=== PATIENT | female | born 1990 | race Caucasian/White ===

== ENCOUNTER 2018-11-04 08:34 | Inpatient (IN) | payer MEDICAID ==
[~2018-11-04] VITALS: Ht 160 cm; Wt 96.7 kg
[~2018-11-04 08:34] MED LIST: NPH,100I5 SQ; PREN-93 PO
[2018-11-04 08:49] VITALS: BP 135/83; PULSE 71; RESP 18
[2018-11-04 08:50] VITALS: Ht 160 cm; Wt 96.7 kg
--- NOTE | 2018-11-04 11:07 | HP ---
Date/Time of Note Date/Time of Note DATE: 11/04/18 TIME: 11:05 OB - History Hx of Present Free Text/Dictation 28-year-old 2 para 1 at 33 weeks and 2 days of gestation with estimated date of delivery December 21, 2018 Patient presents with chief complaint of vaginal bleeding and passing blood clot since this morning She reports positive movement, denies leaking fluid, denies uterine contractions Patient is a gestational diabetic currently on insulin Prior obstetrical history significant for x1 for preeclampsia Care: Good Care Obstetrical Complications: Gestational Diabetes (GDM A2 on insulin) Past Family/Social History * Past Medical, Surgical, Family and Obstetric Histories reviewed from chart. OB Admission Exam Vital Signs Vital Signs Vital Signs Date Temp Pulse Resp B/P (MAP) Pulse Ox O2 O2 Flow FiO2 Time Delivery Rate 11/04/18 97.5 71 18 135/83 Room Air 08:49 (100) Physical Exam HEENT: WNL Heart: Rhythm Normal Lungs: Clear, Equal Abdomen: WNL Extremities: Normal Reflexes: Normal Cervical Dilatation: None Effacement: 0% Membranes: Intact Heart Rate: 140's Accelerations: Accelerations Present Decelerations: No Decelerations Varibility: Moderate Contractions on Admission: None Last 72 hourBlood Glucose Bedside Glucose - 72 Hours Test 11/04/18 08:48 Bedside Glucose 109 mg/dL (70-220) Last 72 hours Lab Results CBC & BMP 11/04/18 09:33 Liver Function Test 11/04/18 09:33 Alanine Aminotransferase (ALT/SGPT) 21 Albumin 3.8 Alkaline Phosphatase 105 Aspartate Amino Transf (AST/SGOT) 21 Direct Bilirubin 0.00 Total Protein 7.4 Urine Results - 72 Hrs Test 11/04/18 09:42 Urine Color YELLOW (YELLOW) Urine Clarity CLEAR (CLEAR) Urine pH 6.0 (5.0-9.0) Urine Specific [place] 1.014 (1.003-1.030) Urine Ketones NEGATIVE mg/dL (NEGATIVE) Urine Nitrite NEGATIVE mg/dL (NEGATIVE) Urine Bilirubin NEGATIVE mg/dL (NEGATIVE) Urine Urobilinogen NEGATIVE mg/dL (NEGATIVE) Urine Leukocyte Esterase NEGATIVE Mattie/ul Urine Microscopic RBC > 182 /HPF (0-5) H Urine Microscopic WBC 1 /HPF (0-5) Urine Hemoglobin 3+ mg/dL (NEGATIVE) H Urine Glucose NEGATIVE mg/dL (NEGATIVE) Urine Total Protein 1+ mg/dl (NEGATIVE) H PROCEDURE: US OB estimated weight CLINICAL INDICATION: labor TECHNIQUE: Multiple transabdominal sonographic images of the pelvis were obtained. . COMPARISON: None FINDINGS: Live intrauterine in cephalic presentation with heart rate of 158.8 beats per minute. Posterior placenta. Cervix appears closed with length of 5.4 cm. Measurements were made in order to determine age. The results are as fo llows: BPD = 8.1 cm, 32 weeks 3 days HC = 29.1 cm, 32 weeks 0 days AC = 30.6 cm, 34 weeks 4 days FL = 6.3 cm, 32 weeks 4 days AUA 32 weeks 6 days plus or minus 2 weeks 2 days, MAGALIE (AUA) 12/24/2018. EFW = 2218 g +/- 332.73 g (4 pounds 14 ounces +/- 12 ounces), EFW percentile 49.3%. IMPRESSION: 1. EFW = 2218 g +/- 332.73 g, EFW percentile 49.3%. RPTAT: EE Physician Cody Date Time Electronically viewed and signed by Physician Cody on 11/04/2018 10:49 RP/ CC: MILLY REID MD [id number] PROCEDURE: US OB biophysical profile. CLINICAL INDICATION: Vaginal bleeding. TECHNIQUE: Multiple sonographic images of the pelvis were obtained. The images were reviewed on a PACS workstation. COMPARISON: OB ultrasound November 04, 2018 per FINDINGS: Noted is a single intrauterine gestation in cephalic lie with positive heart beat. The placenta is posterior grade 1 to II. Amniotic fluid index m easures 17.7 cm. Biophysical profile: movement 2/2 tone 2/2. breathing 2/2 ADOLPH 2/2 Total 11/16 IMPRESSION: Normal biophysical profile . . .Alejandro Townsend MD, Date Time Electronically viewed and signed by .Alejandro Townsend MD, MD on 11/04/2018 12:55 .A/ CC: CATRACHITO PITTS MD [phone] OB Assessment/Plan Reason for admission: labor, vaginal bleeding (Rule out placental abruption) Plan: Expectant Management Other plan: Admit to antepartum PIH labs done 24-hour urine protein collection IV fluids Betamethasone for lung maturity Magnesium for neuro protection and prevention of labor Neonatology consultation Continuous observation and consider repeat if further vaginal bleeding/passing clots and increased level of pain/contractions or nonreassuring heart tracing This patient plan of care was discussed with Dr. Maya/perinatologist Copies To: CC: MILLY REID MD ; CATRACHITO PITTS MD Nov 04, 2018 11:07
--- NOTE | 2018-11-04 11:18 | TRIAGE ---
OB Triage Datetime Report Generated by CPN: 11/04/2018 11:18 Datetime: 11/04/2018 11:00 Stage of : OB Triage Maternal Assessment Level of Consciousness: Keenly Alert, Responsive Labor Evaluation Frequency: 0 Monitor Mode: External Resting Tone [place]: Relaxed Heart Rate FHR Baseline Rate: 140 Monitor Mode: External US Variability: Moderate 6-25 bpm Accelerations: 15X15 Decelerations: Variable Category: Category I Pain Assessment Pain Scale: 0 Pain Goal: 3 Vaginal Exam Membrane Status: Intact Vaginal Bleeding: Scant Datetime: 11/04/2018 10:00 Stage of : OB Triage Maternal Assessment Level of Consciousness: Keenly Alert, Responsive Labor Evaluation Frequency: 2UC/HR Monitor Mode: External Duration (sec)2399: 60 Quality: Mild Resting Tone [place]: Relaxed Heart Rate FHR Baseline Rate: 140 Monitor Mode: External US Variability: Moderate 6-25 bpm Accelerations: 15X15 Decelerations: Variable Category: Category I Pain Assessment Pain Scale: 0 Pain Goal: 3 Vaginal Exam Membrane Status: Intact Vaginal Bleeding: Scant Datetime: 11/04/2018 08:54 EGA: 33.2 Datetime: 11/04/2018 08:50 Bedside Blood Glucose: 109 Datetime: 11/04/2018 08:44 Assessment Type: Triage Maternal Assessment Level of Consciousness: Keenly Alert, Responsive DTR's/Clonus: DTRs 2+; No Clonus Headache: Denies Blurred Vision: No Respiratory Effort: Unlabored; Regular Rhythm; Equal Expansion Breath Sounds, Left: Clear and Equal Breath Sounds, Right: Clear and Equal Nausea/Vomiting: Denies RUQ Epigastric Pain: Denies Lower Extremities Edema: None Degree: None Upper Extremities Edema: None Degree: None Facial Edema: None Fall Risk Assessment History of Falling: (0) No Secondary Diagnosis: (0) No Ambulatory Aid: (0) Bedrest/Nurse Assist IV Therapy: (0) No Gait: (0) Normal/Bedrest/Immobile Mental Status: (0) Oriented to Own Ability Fall Score: 0 Fall Risk Score Definition: No Risk: No action required Datetime: 11/04/2018 08:42 Time of Arrival: 11/04/2018 08:28 Arrived By: Ambulatory; Wheelchair Arrived From: Home Chief Complaint: PT. HERE C/O VAG. BLEEDING SINCE THIS AM Movement: Present Contractions: Denies/Absent Rupture of Membranes: Denies Vaginal Bleeding: Scant Vaginal Discharge: Denies Recent Sexual Intercouse: Denies Abdominal Trauma: Not Applicable Patient Complaints: None Time Provider Notified: 11/04/2018 08:28 Provider Notified: ESHAGHIAN Initial Plan: BS/CBC/T_S/PREVIA/EFW/PIH/CVL Datetime: 11/04/2018 08:39 Monitor Mode: External Monitor Mode: External US
[2018-11-04] MEDS ORDERED: ACETAMINOPHEN 325 MG TAB PO PRN (11:30)
[2018-11-04] MEDS ORDERED: NACL 0.9% 3 ML SYG IV SCH (11:30)
[2018-11-04] MEDS ORDERED: BETAMET NA PHOS/AC(6 MG/ML) 2 ML INJ SYG IM SCH ×2 (12:00→21:00)
[2018-11-04] MEDS: INSULIN ASPART [NOVOLOG] 3 ML PEN SC SCH ×2 (12:30→17:35)
[2018-11-04] MEDS: LACTATED RINGER'S 1,000 ML IV SCH ×3 (12:55→22:02)
[2018-11-04] MEDS: PRENATAL VITAMIN PO SCH (13:00)
[2018-11-04] MEDS: ACCU-CHEK XX SCH ×4 (16:00→19:35)
[2018-11-04] MEDS ORDERED: AZITHROMYCIN 500MG/NS (PMX) 250 ML IV SCH (17:30)
[2018-11-04] MEDS ORDERED: OXYTOCIN 30 UNITS/LR 500 ML IV SCH (17:30)
[2018-11-04] MEDS ORDERED: CEFAZOLIN 2 GM/50 ML (PMX) 50 ML IVPB SCH (17:30)
[2018-11-04] MEDS ORDERED: MAGNESIUM SULFATE 4 GM/100 ML 100 ML ONE (17:34)
[2018-11-04] MEDS ORDERED: MAGNESIUM SULFATE 4 GM/100 ML 100 ML IV ONE (18:00)
[2018-11-04] MEDS: MAGNESIUM SULFATE 20 GM/500 ML 500 ML IV SCH (18:16)
[2018-11-04] MEDS: NPH, HUMAN INSULIN ISOPHANE 3ML VIAL SC SCH (21:00)
[2018-11-05] MEDS: MAGNESIUM SULFATE 20 GM/500 ML 500 ML IV SCH ×2 (04:56→15:39)
[2018-11-05] MEDS: ACCU-CHEK XX SCH ×8 (06:12→21:14)
[2018-11-05] MEDS ORDERED: NON-FORMULARY/PATIENT OWN MED (Prenatal Vit No.124/Iron/FA (Prenatal Vitamin Tablet) 1 EAC PO SCH (09:00)
[2018-11-05] MEDS: PRENATAL VITAMIN PO SCH (09:07)
[2018-11-05] MEDS: CEPHALEXIN 500 MG CAP PO SCH ×3 (09:07→21:15)
--- NOTE | 2018-11-05 10:07 | QN ---
Documentation Comment progress note patient seen and evaluated no complaints positive dysuria no vaginal bleeding/discharge vs stable afebrile ab soft mild lower abdominal tenderness extremity no edema no calf tenderness ve no active bleeding/discharge fhr cat 1 toco occasional ctx a/ iup at 33 wks 3 days ga, r/o placenta abruption. currently on mg and steriod treatment, gdma2 stable afebrile p/ consider delivery for non reassuring tracing repeat sono/ cbc perinatology f/u neonatology consult MILLY REID MD Nov 05, 2018 10:07
[2018-11-05] MEDS: LACTATED RINGER'S 1,000 ML IV SCH ×2 (12:27→20:55)
--- NOTE | 2018-11-05 16:18 | CONS ---
Consultation Date/Type/Reason Admit Date/Time Nov 04, 2018 at 10:57 Date of Consultation: Nov 05, 2018 Type of Consult Neonatology Reason for Consultation labor, Bleeding possible abruptio Gestational diabetes insulin deonedent (A2) Date/Time of Note DATE: 11/05/18 TIME: 16:12 Hx of Present Illness Admit Date/Time Oct 19, 2018 at 10:29 Date of Consultation: Nov 05, 2018 Type of Consult Neonatology Reason for Consultation Admitted for -induced hypertension, bleeding, gestational diabetes insulin-dependent, at 33-3/7-week. Requesting Provider: ALLY LOBO Date/Time of Note DATE: 11/05/18 TIME: 14:40 Hx of Present Illness Neonatlogy consultation on request Dr Canseco Patient admitted 11/04. HISTORY The mother is a 28 year old at 33 2/7 weeks gestation Denies illnesses, medications, smoking, drugs, alcohol. has been complicated by: Gestational Diabetes, on insulin (type A2) CURRENT ADMISSION HISTORY: She was admitted to [facility] on 11/04/18. Medications received betamethasone, magnesiumsulfate. Last Ultrasound on 11/04/18 showed EFW 2218 Gram. CONSULTATION: I introduced myself and explained the role of the instructional developer at the delivery and in the subsequent care of her . I discussed the common problems and possible complications of infants. in the approach 1. Survival and prognosis. I explained that survival at 33 weeks is well over >> 90%. Premature babies are at increased risk for neuromuscular and developmental problems compare to infants born at term. 2. Duration of hospitalization. In general, infants remain hospitalized in our intensive care nursery until due date or 2-3 weeks earlier as infant's condition allow. Discharge of the infant is entirely contingent upon resolution of issues related to prematurity. 3. Respiratory. Although courses of betamethasone attenuate the severity of RDS, the infant still remains at risk for needing respiratory support after delivery. The may require oxygen, positive pressure via nasal pressure support, or mechanical ventilation to support lung immaturity. If the does require mechanical ventilation, surfactant administration may be given down the endotracheal tube in order to maximize lung function. Possible need for invasive monitoring via umbilical and/or peripheral vessels. 4. Apnea of prematurity. A 's brain may be unable to consistently and reliably provide cues to breathe. As such, may have apnea (stop or forget to breathe) resulting in drops in their oxygen level. While most cases of apnea of prematurity can be attenuated with caffeine therapy, rarely infants may require intubation and mechanical ventilation if their episodes of apnea are severe. 5. Risk for infection. Possible infectious problems and/or complication and need for treatment with antibiotics, work-up including procedures such as spinal tap were discussed. 6. Vascular access Needs for purposes of monitoring, blood draws and intravenous nutrition: umbilical, peripheral arterial and central venous access were discussed. 7. Possible need for transfusion. We take small amounts of blood while taking care of her baby. Babies also break down their own red blood cells after and become more anemic until about 2 months of age. infants are at risk for jaundice and hyperbilirubinemia requiring phototherapy, and may need support with blood transfusions, using blood from Blood Bank or [place], All blood used is tested for all the standard tests, including AIDS, Hepatitis, and many others, and CMV negative and irradiated blood is used. This testing typically takes about 5 days. 8. Feeding support and feeding intolerance. After acute illness and intravenous feeding, at this gestational age, the infant may still not have a mature capability to feed orally from breast or bottle, as the ipsc-vgjibws-cxcqgoqyr coordination does not develop until about 34-35 weeks gestation.While on IV support, the infant will be gradually advanced on nasogastric/orogastric feedings, using maternal breast milk and supplements as per usual guideline, weaned off IV fluids, then ultimately transitioned to oral feedings. The exp ectation is to be discharged home (sometimes supplemented with bottle feeding in smaller infants) or bottlefeeding, whichever the mother prefers. There is also increased risk for necrotizing enterocolitis. 9. Jaundice. At this gestational age, the infant is more susceptible to jaundice and may require phototherapy at some point during the first couple weeks of admission. infants are at risk for jaundice and hyperbilirubinemia requiring phototherapy 10. Temperature instability. At this gestational age, the infant may lack adequate adipose tissue to maintain thermoregulation. As a result, the infant will remain in an Isolette typically until at least 1800 grams and 34-35 weeks gestation. 11. Neuro: Premature babies are at increased risk for neuromuscular and developmental problems compare to infants born at term. At risk for adverse neurodevelopmental outcome. At this gestational age, the 's brain is more susceptible to bleeding (IVH) and brain injury and as such, the is at risk for future developmental delays. Although a completely normal neurologic outcome is possible, infants are at relatively higher risk for attentio n-deficit, hyperactivity, anxiety and learning disabilities compared to their term peers. These developmental delays manifest with age and a normal-appearing at discharge does not necessarily assure normal future development. The infant will need close developmental follow-up with the claim clinician after discharge in order to identify disabilities early when they may be amenable to therapy. Eye exams and hearing screen will also be performed during admission and before discharge. Parents are present and significant and good questions and they will answered to their satisfaction. Translation was provided by 1 of our bilingual [place]- speaking nurses with good understanding for the patient's. Thank you for allowing me to participate in the care of your patient. Length of consultation 50 minutes, more than 50% of which was spent on counseling and coordination of care. Mita Armendariz MD Labor Relations Officer [employer] [facility] NICU at [facility] My Past Medical History Home Meds Reported Medications NPH, Human Insulin Isophane (Humulin N Kwikpen) 100 Unit/1 Ml Insuln.pen, 6 UNIT SQ QHS, EA 11/04/18 Vit No.124/Iron/FA ( Vitamin Tablet) 1 Each Tablet, 1 EACH PO DAILY, TAB 11/04/18 Medications Current Medications Insulin Human NPH (Humulin N) 6 unit HS SC ; Start 11/04/18 at 21:00 Acetaminophen (Tylenol Tab) 650 mg Q4H PRN PO .PAIN OR TEMP; Start 11/04/18 at 11:30 Diagnostic Test (Pha) (Accu-Chek) 1 ea FBSPP XX Last administered on 11/05/18at 06:12; Admin Dose 1 EA; Start 11/04/18 at 13:30 Lactated Ringer's 1,000 ml @ 125 mls/hr Q8H IV Last administered on 11/05/18at 12:27; Admin Dose 125 MLS/HR; Start 11/04/18 at 11:30 Insulin Aspart (Novolog Insulin Pen) WITH MEALS SC ; Start 11/04/18 at 12:30 Diagnostic Test (Pha) (Accu-Chek) 1 ea FBSPP XX Last administered on 11/05/18at 06:12; Admin Dose 1 EA; Start 11/04/18 at 13:30 Prenat Multivit/ [place]/Iron/Folic Ac () 1 tab DAILY PO Last administered on 11/05/18at 09:07; Admin Dose 1 TAB; Start 11/04/18 at 13:00 Cefazolin Sodium/ Dextrose 50 ml @ 100 mls/hr ONCE IVPB ; Start 11/04/18 at 17:30 Oxytocin/Lactated Ringer's 500 ml @ 125 mls/hr POST IV ; Start 11/04/18 at 17:30 Azithromycin 250 ml @ 250 mls/hr ONCE IV ; Start 11/04/18 at 17:30 Magnesium Sulfate 500 ml @ 50 mls/hr Q10H IV Last administered on 11/05/18at 15:39; Admin Dose 50 MLS/HR; Start 11/04/18 at 17:37 Cephalexin (Keflex) 500 mg TID PO Last administered on 11/05/18at 15:25; Admin Dose 500 MG; Start 11/05/18 at 09:00 Allergies: Coded Allergies: No Known Allergy (Unverified , 11/04/18) Social History Smoking Status: Never smoker Exam/Review of Systems Exam Vitals Vital Signs Date Temp Pulse Resp B/P (MAP) Pulse Ox O2 O2 Flow FiO2 Time Delivery Rate 11/04/18 97.5 71 18 135/83 Room Air 08:49 (100) Intake and Output 11/04/18 11/04/18 11/05/18 1515:00 23:00 07:00 IntakeIntake Total 1274.5 ml 1000 ml OutputOutput Total 500 ml 2300 ml BalanceBalance 774.5 ml -1300 ml Results Result Diagram: 11/05/18 1203 11/04/18 0933 Results 24hrs Laboratory Tests Test 11/05/18 00:41 11/05/18 04:58 11/05/18 05:49 11/05/18 09:11 Magnesium Level 4.1 H 4.1 H Bedside Glucose 126 117 Test 11/05/18 12:03 11/05/18 13:26 White Blood Count 13.8 #H Red Blood Count 3.91 L Hemoglobin 11.6 L Hematocrit 34.9 L Mean Corpuscular 89.3 Volume Mean Corpuscular 29.7 Hemoglobin Mean Corpuscular 33.2 Hemoglobin Concent Red Cell 12.2 Distribution Width Platelet Count 189 Mean Platelet Volume 11.2 H Immature 1.200 H Granulocytes % Neutrophils % 82.3 H Lymphocytes % 11.1 L Monocytes % 5.3 Eosinophils % 0.0 Basophils % 0.1 Nucleated Red Blood 0.0 Cells % Immature 0.160 H Granulocytes # Neutrophils # 11.4 H Lymphocytes # 1.5 Monocytes # 0.7 Eosinophils # 0.0 Basophils # 0.0 Nucleated Red Blood 0.0 Cells # Magnesium Level 4.2 H Bedside Glucose 108 Medications Medication Current Medications Insulin Human NPH (Humulin N) 6 unit HS SC ; Start 11/04/18 at 21:00 Acetaminophen (Tylenol Tab) 650 mg Q4H PRN PO .PAIN OR TEMP; Start 11/04/18 at 11:30 Diagnostic Test (Pha) (Accu-Chek) 1 ea FBSPP XX Last administered on 11/05/18at 06:12; Admin Dose 1 EA; Start 11/04/18 at 13:30 Lactated Ringer's 1,000 ml @ 125 mls/hr Q8H IV Last administered on 11/05/18at 12:27; Admin Dose 125 MLS/HR; Start 11/04/18 at 11:30 Insulin Aspart (Novolog Insulin Pen) WITH MEALS SC ; Start 11/04/18 at 12:30 Diagnostic Test (Pha) (Accu-Chek) 1 ea FBSPP XX Last administered on 11/05/18at 06:12; Admin Dose 1 EA; Start 11/04/18 at 13:30 Prenat Multivit/ [place]/Iron/Folic Ac () 1 tab DAILY PO Last administered on 11/05/18at 09:07; Admin Dose 1 TAB; Start 11/04/18 at 13:00 Cefazolin Sodium/ Dextrose 50 ml @ 100 mls/hr ONCE IVPB ; Start 11/04/18 at 17:30 Oxytocin/Lactated Ringer's 500 ml @ 125 mls/hr POST IV ; Start 11/04/18 at 17:30 Azithromycin 250 ml @ 250 mls/hr ONCE IV ; Start 11/04/18 at 17:30 Magnesium Sulfate 500 ml @ 50 mls/hr Q10H IV Last administered on 11/05/18at 15:39; Admin Dose 50 MLS/HR; Start 11/04/18 at 17:37 Cephalexin (Keflex) 500 mg TID PO Last administered on 11/05/18at 15:25; Admin Dose 500 MG; Start 11/05/18 at 09:00 MITA HOLLAND Nov 05, 2018 16:18
[2018-11-05] MEDS: INSULIN ASPART [NOVOLOG] 3 ML PEN SC SCH ×2 (19:50→19:51)
[2018-11-05] MEDS: NPH, HUMAN INSULIN ISOPHANE 3ML VIAL SC SCH (21:18)
[2018-11-06] MEDS: LACTATED RINGER'S 1,000 ML IV SCH ×2 (01:23→13:49)
[2018-11-06] MEDS: MAGNESIUM SULFATE 20 GM/500 ML 500 ML IV SCH (01:26)
[2018-11-06] MEDS: INSULIN ASPART [NOVOLOG] 3 ML PEN SC SCH ×4 (07:35→19:49)
[2018-11-06] MEDS: ACCU-CHEK XX SCH (07:45)
[2018-11-06] MEDS: PRENATAL VITAMIN PO SCH (09:14)
[2018-11-06] MEDS: CEPHALEXIN 500 MG CAP PO SCH ×3 (09:14→21:09)
--- NOTE | 2018-11-06 11:59 | QN ---
Documentation Comment progress note patient seen and evaluated no complaints positive dysuria no vaginal bleeding/discharge vs stable afebrile ab soft mild lower abdominal tenderness extremity no edema no calf tenderness ve no active bleeding/discharge fhr cat 1 toco occasional ctx a/ iup at 33 wks 4 days ga, r/o placenta abruption. currently on mg and steriod treatment, gdma2 stable afebrile p/ consider delivery for non reassuring tracing perinatology f/u MILLY REID MD Nov 06, 2018 11:59
[2018-11-06] MEDS: NPH, HUMAN INSULIN ISOPHANE 3ML VIAL SC SCH (21:19)
--- NOTE | 2018-11-07 02:31 | CONS ---
DATE OF ADMISSION: 11/04/2018 DATE OF CONSULTATION: 11/06/2018 HISTORY OF PRESENT ILLNESS: The patient is a G2, P1 at 33 and 4, presented to the hospital on ay with complaint of vaginal bleeding. She does state that she worked somewhat harder on Tuesday, o therwise, no change. Knows relationship and upon admission, I spoke with , who was ribbon blocker and patient already has had 2 large blood clots. She received betamethasone on magnesium sulfate. H er strip has remained category . Yesterday, no bleeding was noted. Cervical exam shows cervix closed, no previa. OBSTETRIC HISTORY: She is diabetic on insulin and also history of preeclampsia with her last pregnan cy, a . Blood pressures normal. Blood pressures from the clinic are not available. Physical exam deferred. heart tones reassuring. Contractions none. LABORATORY DATA: Complete metabolic panel shows AST, ALT, creatinine to be normal. A 24-hour urine for protein is over 1000 mg. IMPRESSION: Intrauterine at 33 weeks and 4 days with vaginal bleeding, status post magnesi um sulfate and betamethasone, currently without bleeding for over 24 hours, no contractions, diabetic on insulin with history of preeclampsia with currently normal blood pressures, normal labs, with the exception of elevated protein in her urine. Given her prior history and in addition to that, an elevated 24-hour urine for protein, her vaginal b leeding becomes more of a concern as the reason really is unknown and a small abruption is possible. RECOMMENDATIONS: In-house management with continuous heart tone monitoring. NICU consult if it has not been done. Continue the sliding scale in addition to her insulin until next Tuesday when the effect of the beta methasone is resolved. Delivery is recommended if she does have any type of severe range blood pressures, nonreassuring feta l heart tones or any episode of bleeding. Otherwise, we will reassess every 12 hours. Dictated By: MARVIN GALLARDO MD ST/[facility]IN Conf#: [id number] DID#: [id number] CC: MILLY REID MD;*End*
[2018-11-07] MEDS: LACTATED RINGER'S 1,000 ML IV SCH (02:37)
[2018-11-07] MEDS: PRENATAL VITAMIN PO SCH (08:50)
--- NOTE | 2018-11-07 17:56 | QN ---
Documentation Comment progress note patient seen and evaluated no complaints positive dysuria no vaginal bleeding/discharge vs stable afebrile ab soft mild lower abdominal tenderness extremity no edema no calf tenderness ve no active bleeding/discharge fhr cat 1 toco no ctx a/ iup at 33 wks 5 days ga, r/o placenta abruption. completed mg and steroid treatment, gdma2 stable afebrile p/ continue to monitor patient closely MILLY REID MD Nov 07, 2018 17:56
[2018-11-07] MEDS: INSULIN ASPART [NOVOLOG] 3 ML PEN SC SCH (19:30)
[2018-11-07] MEDS: ACCU-CHEK XX SCH ×6 (21:38→21:41)
[2018-11-07] MEDS: NPH, HUMAN INSULIN ISOPHANE 3ML VIAL SC SCH (22:15)
--- NOTE | 2018-11-08 07:23 | QN ---
Documentation Comment progress note patient seen and evaluated no complaints positive dysuria no vaginal bleeding/discharge vs stable afebrile ab soft mild lower abdominal tenderness extremity no edema no calf tenderness ve no active bleeding/discharge fhr cat 1 toco no ctx a/ iup at 33 wks 6 days ga, r/o placenta abruption. completed mg and steroid treatment, gdma2 stable afebrile p/ continue to monitor patient closely MILLY REID MD Nov 08, 2018 07:23
[2018-11-08] MEDS: PRENATAL VITAMIN PO SCH (09:47)
[2018-11-08] MEDS: LACTATED RINGER'S 1,000 ML IV SCH (19:30)
[2018-11-08] MEDS: ACCU-CHEK XX SCH ×8 (19:35→22:59)
[2018-11-08] MEDS: INSULIN ASPART [NOVOLOG] 3 ML PEN SC SCH ×3 (21:43→22:09)
[2018-11-08] MEDS: NPH, HUMAN INSULIN ISOPHANE 3ML VIAL SC SCH (22:10)
[2018-11-09] MEDS: LACTATED RINGER'S 1,000 ML IV SCH ×3 (00:42→18:12)
--- NOTE | 2018-11-09 09:41 | QN ---
Documentation Comment Called by RN that the patient that the patient has vaginal bleeding and ab dominal pain Seen last night due to intermittent bleeding. pateint has been passing blood clots. reports abdominal pain. PE: GA: A&O, in mild distress Abdomen: Soft, tenderness over the abdomen noted NST: Cat 1, irritability noted [place] from last night and this morning reviewed Assessment IUP at 34 weeks Vaginal bleeding, uterine irritability and uterine tenderness, exam consistent with abruption Status post 2 doses of steroid and magnesium History of x1 Per recommendation by perinatologist proceed with repeat section Risk and benefit of section including risk of infection, bleeding, damage to adjacent structures including bowel and bladder and risk of blood transfusion including but not limited to blood borne infection including HIV, hepatitis B and C and transfusion reaction discussed with the patient in detail informed consent was obtained GDM, A2, blood sugar currently well controlled. Did not require any insulin while in-house Patient has been n.p.o. OR and charge nurse and NICU was notified Proceed with repeat section AMPARO BEARDEN MD Nov 09, 2018 09:41
[2018-11-09] MEDS ORDERED: LACTATED RINGER'S 1,000 ML IV ONE (10:09)
--- NOTE | 2018-11-09 10:09 | PREAC ---
Date/Time of Note Date/Time of Note DATE: 11/09/18 TIME: 10:08 Anesthesia Eval and Record Evaluation Time Pre-Procedure Interview DATE: 11/09/18 TIME: 10:08 Age 28 Sex female NPO: 8 hrs Preoperative diagnosis intrauterine , possible placental abruption Planned procedure repeat c section Past Medical History Past Medical History: Includes : Gestational age: (34), Gestational diabetes Surgery & Anesthesia Issues No known issue Meds Anticoagulation: No Beta Eleazar within 24 hr: No Reason Beta Eleazar not given: Pt. not on B-Eleazar Reported Medications NPH, Human Insulin Isophane (Humulin N Kwikpen) 100 Unit/1 Ml Insuln.pen, 6 UNIT SQ QHS, EA 11/04/18 Vit No.124/Iron/FA ( Vitamin Tablet) 1 Each Tablet, 1 EACH PO DAILY, TAB 11/04/18 Current Medications Insulin Human NPH (Humulin N) 6 unit HS SC Last administered on 11/07/18at 22:15; Admin Dose 6 UNIT; Start 11/04/18 at 21:00 Acetaminophen (Tylenol Tab) 650 mg Q4H PRN PO .PAIN OR TEMP; Start 11/04/18 at 11:30 Diagnostic Test (Pha) (Accu-Chek) 1 ea FBSPP XX Last administered on 11/08/18at 21:55; Admin Dose 1 EA; Start 11/04/18 at 13:30 Insulin Aspart (Novolog Insulin Pen) WITH MEALS SC Last administered on 11/06/18at 19:49; Admin Dose 1 UNIT; Start 11/04/18 at 12:30 Diagnostic Test (Pha) (Accu-Chek) 1 ea FBSPP XX Last administered on 11/05/18at 21:14; Admin Dose 1 EA; Start 11/04/18 at 13:30 Prenat Multivit/ Head Of History/Iron/Folic Ac () 1 tab DAILY PO Last administered on 11/08/18at 09:47; Admin Dose 1 TAB; Start 11/04/18 at 13:00 Lactated Ringer's 1,000 ml @ 125 mls/hr Q8H IV Last administered on 11/09/18at 09:09; Admin Dose 125 MLS/HR; Start 11/08/18 at 17:56 Meds reviewed: Yes Allergies Coded Allergies: No Known Allergy (Unverified , 11/04/18) Allergies Reviewed: Yes Labs/Studies Labs Reviewed: Reviewed by anesthesiologist Result Diagram: 11/08/181951 Laboratory Tests 11/08/18 19:52 Blood Bank Test 11/08/18 19:52 Antibody Screen NEGATIVE Blood Type A POSITIVE Rh Immune Globulin Candidate NO test: N/A Pre-procedure Exam Airway: Adequate mouth opening, Adequate thyromental dist Mallampati: Mallampati II Teeth: Normal Lung: Normal Heart: Normal ASA Physical Status ASA physical status: 2 Emergency: None Planned Anesthetic Neuraxial: Spinal Planned Pain Management Sub-arachniod narcotics, Parenteral pain med Pre-operative Attestations Prior to commencing anesthesia and surgery, the patient was re-evaluated, there was verification of: *The patient's identity *The results of appropriate recent lab work and preoperative vital signs *The above evaluation not changing prior to induction *Anesthetic plan, risk benefits, alternative and complications discussed with patient/family; questions answered; patient/family understands, accepts and wishes to proceed. DYLAN GARCIA MD Nov 09, 2018 10:09
[2018-11-09] MEDS ORDERED: METOCLOPRAMIDE 10 MG INJ IV ONE (10:30)
[2018-11-09] MEDS ORDERED: FAMOTIDINE 20 MG INJ IV ONE (10:30)
[2018-11-09] MEDS ORDERED: CITRIC ACID/NA CITRATE 30 ML CUP PO ONE (10:30)
[2018-11-09] MEDS ORDERED: CEFAZOLIN 2 GM/50 ML (PMX) 50 ML IVPB ONE (11:47)
[2018-11-09] MEDS ORDERED: morphine SULFATE/PF (10 MG/10 ML) INJ ONE (12:21)
[2018-11-09] MEDS ORDERED: PHENYLephrine (100 MCG/ML) 10ML SYG ONE (12:49)
[2018-11-09] MEDS ORDERED: OXYTOCIN 30 UNITS/LR 500 ML IV ONE ×2 (12:58→13:40)
[2018-11-09] MEDS ORDERED: EPHEDrine 25 MG/5 ML SYG IV PRN (13:00)
[2018-11-09] MEDS ORDERED: MEPERIDINE 25 MG INJ IV PRN (13:00)
[2018-11-09] MEDS ORDERED: DIPHENHYDRAMINE 50 MG INJ IV PRN ×2 (13:00→18:00)
[2018-11-09] MEDS ORDERED: FENTAnyl 50 MCG/ML VIAL IV PRN ×3 (13:00)
[2018-11-09] MEDS ORDERED: ONDANSETRON 4 MG INJ IV PRN ×2 (13:00→18:00)
[2018-11-09] MEDS ORDERED: HYDROmorphONE 1 MG/5 ML IV SYRINGE IV PRN ×3 (13:00)
[2018-11-09] MEDS ORDERED: KETOROLAC 30 MG INJ IV PRN (13:00)
[2018-11-09] MEDS ORDERED: PROCHLORPERAZINE 10 MG INJ IV PRN (13:00)
[2018-11-09] MEDS ORDERED: ONDANSETRON 4 MG INJ ONE (13:17)
[2018-11-09] MEDS ORDERED: MIDAZOLAM 1 MG/ML 2 ML INJ ONE (13:27)
[2018-11-09] MEDS ORDERED: FENTAnyl 50 MCG/ML VIAL ONE (13:28)
[2018-11-09] MEDS ORDERED: MEPERIDINE 100 MG INJ ONE (13:43)
--- NOTE | 2018-11-09 14:20 | PAC ---
Date/Time of Note Date/Time of Note DATE: 11/09/18 TIME: 14:20 Post-Anesthesia Notes Post-Anesthesia Note Activity: WNL Respiratory function: WNL Cardiovascular function: WNL Mental status: Baseline Pain reasonably controlled: Yes Hydration appropriate: Yes Nausea/Vomiting absent: Yes Comments BP: 130/76 HR: 70 RR: 15 T: 98 SaO2: 99% DYLAN GARCIA MD Nov 09, 2018 14:20
[2018-11-09 16:30] VITALS: BP 132/69; PULSE 65; RESP 16
[2018-11-09] MEDS ORDERED: NALOXONE (0.4 MG/ML) INJ IV PRN (18:00)
[2018-11-09] MEDS ORDERED: HYDROmorphONE 0.5 MG/0.5 ML SYG IV PRN (18:00)
[2018-11-09] MEDS ORDERED: ZOLPIDEM 5 MG TAB PO PRN (18:00)
[2018-11-09] MEDS ORDERED: OXYTOCIN 30 UNITS/LR 500 ML IV SCH (18:27)
[2018-11-09] MEDS ORDERED: LANOLIN HPA 1 PKT TOP PRN (18:30)
[2018-11-09] MEDS ORDERED: OXYTOCIN 30 UNITS/LR 500 ML IV PRN (18:30)
[2018-11-09] MEDS ORDERED: NACL 0.9% 3 ML SYG IV SCH (18:30)
[2018-11-09] MEDS ORDERED: METHYLERGONOVINE 0.2 MG INJ IM PRN (18:30)
[2018-11-09] MEDS: IBUPROFEN 600 MG TAB PO SCH (18:30)
[2018-11-09] MEDS ORDERED: HYDROCODONE/APAP (5/325) TAB PO PRN (18:30)
[2018-11-09] MEDS ORDERED: CARBOPROST 250 MCG INJ IM PRN (18:30)
[2018-11-09] MEDS ORDERED: MISOPROSTOL 200 MCG TAB PR PRN (18:30)
[2018-11-09 18:40] VITALS: BP 129/75; PULSE 69; RESP 18
--- NOTE | 2018-11-09 18:43 | OPR ---
Operative Report Planned Procedure Free Text/Dictation November 09, 2018 Procedure date Nov 09, 2018 Procedure(s) Repeat section with bilateral tubal sterilization Performed by see signature line Overcoil Stepper: A 2nd Overcoil Stepper Surgical scrub Anesthesiologist: DYLAN GARCIA MD Pre-procedure diagnosis 1. IUP at 34 weeks 2. History of x1 3. Vaginal bleeding or uterine contractions concerning for abruption, recommended by perinatologist to proceed with section if any evidence of contractions or bleeding [id number] Anesthesia Type: [id number] spinal Post-Procedure Post-procedure diagnosis Abruption Findings Live Baby Girl], Apgars 8.9 and weight 5, lb, position [Cephalic], presentation []cord. Placental abruption noted Estimated Blood Loss: 500 - 600 mls Specimen(s) Cord blood Grafts/Implant(s) none Complication(s) none Pt Condition post procedure: stable Disposition: PACU Procedure Description 28-year-old G P female with IUP at 34 weeks and history of x1 and vaginal bleeding and current with clinical picture consistent with placental abruption recommended by perinatologist to proceed with section if any evidence of bleeding. Patient had episode of uterine tenderness vaginal bleeding and irritability consistent with placental abruption and was cannulated for section. Of note that patient status post steroids and magnesium for lung maturity and neuro prophylaxis about 2 weeks ago. Discussed with the patient about risk and benefit of procedure including risk of infection, bleeding, damage to surrounding structures including bowel and bladd er and risk of blood transfusion including but not limited to blood borne infection including HIV, hepatitis B and C and transfusion reaction in detail. Informed consent was obtained. Patient desires to proceed with bilateral tubal sterilization at the time of as well. Informed consent had been signed in October 16. Patient is a to proceed with bilateral tubal sterilization as well at the time of . All questions were answered to patient with satisfaction. Then patient was transferred to the OR and received and spinal anesthesia was placed in the supine position after adequate spinal anesthesia. She was treated prepped and draped in the dorsal supine position. She received 2 g of Ancef. Timeout procedure was completed and patient was identified correctly. After prepped and draped in the dorsal supine position first a Pfannenstiel skin incision was made in the area of prior incision was carried down to the underlying layer of fascia using scalpel and Bovie. Then the superior aspect of fascial incision was grasped using Yuri, was elevated and was dissected off of the rectus muscle using sharp and Bovie dissection. Then the inferior aspect of the fascial incision grasped using Yuri, was elevated and was dissected off of the parameters muscle in a similar fashion. Then the rectus muscle was dissected in the midline. Retroperitoneum was identified and was entered sharply. Intra-abdominal cavity entered without any complication. Lower uterine segment was identified. Bladder flap was created. Then the uterine incision was opened transversely. Intrauterine cavity entered without any complication. Clear amniotic fluid noted. Baby's head was grasped and was brought up to the incision was delivered through the incision. After delivery of the head anterior shoulder posterior shoulder and the rest of the body delivered without any complication. Nose and mouth was suctioned using daily suction. Cord was clamped after 32nd delay and cut. Baby was then handed to the waiting NICU team. Then the cord blood was obtained. Placenta showed evidence of abruption. Placenta was then delivered manually and was sent to pathology. Then the uterus was cleared of all clots and debris's. Then the uterine incision repaired in 2 layers using 1-0 Monocryl. First layer used for hemostasis and the second layer used for imbrication. Excellent hemostasis of the incision noted. Then the procedure proceeded with performing bilateral tubal sterilization. First exam left tube was grasped in the ampullary isthmic area and with the Mariana technique a 3 cm segment of the tube was doubly ligated using 2-0 plain gut and then resected. The resected portion of the left tube was then sent to pathology. Procedure proceeded in a similar fashion in the right side where a 3 cm mid segment of the ampullary isthmic area of the tube in a similar fashion with a pulmonary technique was doubly ligated and then removed. Excellent hemostasis of the stump of the tube was reassured. Of note that there was evidence of adhesion and scar of the distal portion of both tubes to the abdominal wall. There was some filmy adhesions of the uterus to the abdominal wall and omentum in the right side that was lysed carefully. Then after assurance about hemostasis of the incision and the operative site Surgicel was applied over the urine incision and gutters were cleared of all clots and debris's. Then the parietoperitoneum repaired using 2-0 Vicryl in the midline and the rectus muscle was reapproximated using 2-0 Vicryl in the midline as well. Hemostasis of the rectus muscle obtained using Bovie and then the rectus muscle was reapproximated using 1-0 Vicryl in a continuous fashion. Irrigation of subcutaneous tissue performed using warm normal saline. Suppleness tissue was reapproximated using 2-0 plain gut and the skin was reapproximated using in sorb. Patient tolerated the procedure well. Sponge lap and needle counts were correct x2. Patient was then transferred to recovery room in stable condition AMPARO BEARDEN MD Nov 09, 2018 18:42
[2018-11-09] MEDS: KETOROLAC 30 MG INJ IV PRN (20:06)
[2018-11-09 20:15] VITALS: BP 145/72; PULSE 83; RESP 18
[2018-11-09] MEDS: ACCU-CHEK XX SCH (21:51)
[2018-11-09] MEDS: HYDROmorphONE 0.5 MG/0.5 ML SYG IV PRN (23:11)
[2018-11-10] MEDS: KETOROLAC 30 MG INJ IV PRN ×2 (03:08→11:43)
[2018-11-10 04:43] VITALS: BP 119/72; PULSE 75; RESP 20
[2018-11-10] MEDS: IBUPROFEN 600 MG TAB PO SCH ×5 (06:00→23:33)
[2018-11-10] MEDS: ACCU-CHEK XX SCH ×5 (07:00→20:54)
[2018-11-10] MEDS: HYDROmorphONE 0.5 MG/0.5 ML SYG IV PRN (07:22)
[2018-11-10 08:00] VITALS: BP 118/73; PULSE 81; RESP 18
[2018-11-10 12:00] VITALS: BP 128/86; PULSE 74; RESP 18
[2018-11-10 15:55] VITALS: BP 115/73; PULSE 80; RESP 16
[2018-11-10 20:00] VITALS: BP 119/67; PULSE 89; RESP 19
--- NOTE | 2018-11-10 20:19 | QN ---
Documentation Comment had b.m no c/o ambulaing well vss afebrile abdomen soft wound dry calf neg for tenderness A stable post RC/s P as ordered JAMILAH MARSHALL MD Nov 10, 2018 20:19
[2018-11-11 03:30] VITALS: BP 93/52; PULSE 77; RESP 17
[2018-11-11] MEDS: IBUPROFEN 600 MG TAB PO SCH ×3 (05:35→17:49)
[2018-11-11 07:45] VITALS: BP 126/74; PULSE 71; RESP 18
[2018-11-11] MEDS: ACCU-CHEK XX SCH ×5 (07:45→22:00)
[2018-11-11 16:30] VITALS: BP 115/77; PULSE 75; RESP 18
--- NOTE | 2018-11-11 18:53 | PN ---
Date/Time of Note Date/Time of Note DATE: 11/11/18 TIME: 18:52 OB Subjective Subjective Subjective POD#2 Patient is doing well. She denies nausea, vomiting, shortness of breath, chest pain, headache. She has been ambulating without difficulty, tolerating regular diet. Pain is well controlled on current medications OB Objective Objective Objective General: AAO X 3, comfortable, NAD, appropriate mood and affect. ABD: +BS. Soft, non-tender. Uterus 2 cm below umbilicus Incision: Clear, dry, intact. No erythema, drainage or induration. Flank: No CVA tenderness (B/L) LE: Mild edema. No clubbing, cyanosis, thigh or calf tenderness (B/L). Homans 'sign is negative OB Assessment/Plan Other plan: 28 years old G2, P 04/11[birth year]2001 s/p repeat delivery at 34 weeks. POD#2 - AF, VSS - Continue care - Follow-up by her primary OB ALLY LOBO Nov 11, 2018 18:53
[2018-11-11 20:00] VITALS: BP 144/88; PULSE 74; RESP 19
[2018-11-12] MEDS: IBUPROFEN 600 MG TAB PO SCH ×3 (00:13→11:43)
[2018-11-12 04:00] VITALS: BP 113/81; PULSE 69; RESP 19
[2018-11-12 08:00] VITALS: BP 122/82; PULSE 65; RESP 18
[2018-11-12] MEDS: ACCU-CHEK XX SCH ×4 (08:10→17:35)
[2018-11-12] MEDS ORDERED: MEASLES,MUMPS,RUBELLA VACCINE INJ SC* ONE (09:00)
[2018-11-12] MEDS ORDERED: DIPHTH/TET/ACEL PERTUSS (ADULT) 0.5 ML VIAL IM* ONE (09:00)
--- NOTE | 2018-11-12 16:09 | PD.PPDC ---
MAINTENANCE GROUNDSKEEPER Discharge Instruction Condition [id number] Patient Condition: [id number] Fair Diet Fwrrd4Ws Diet: Ufnta2h Resume Regular Diet Activity/Restrictions [id number] Activity: Nfcdf0f Normal Activity May Shower Follow-up Follow-up with Physician: 2, Week/Weeks Return to clinic for [id number] HOME ENERGY AUDITOR Instructions: Acixt3x Fever greater than 101 Chills Worsening abdominal pain Excessive Vaginal Bleeding More than 2 pads per hour Unable to tolerate diet [id number] OB Instructions: Lwnay0q Breast Tenderness Depression Blurried Vision Headache [id number] Surgical Instructions: Afaip0i Incisional Drainage Incisional Redness MILLY REID MD Nov 12, 2018 16:09
--- NOTE | 2018-11-12 18:41 | DS ---
DATE OF ADMISSION: 11/04/2018 DATE OF DISCHARGE: 11/12/2018 PRIMARY DIAGNOSES: 1. Intrauterine at 34 weeks' gestational age. 2. Previous section x1. 3. Vaginal bleeding/uterine contractions concerning for abruption. 4. Recommended by perinatologist to proceed with delivery for evidence of contractions or b leeding. PROCEDURE: Repeat low transverse delivery with bilateral tubal ligation. CONDITION ON DISCHARGE: Stable. ACTIVITY: None per vagina. No heavy lifting x6 weeks. DIET: Regular. MEDICATIONS ON DISCHARGE: 1. Motrin. 2. Iron. 3. Colace. DISCHARGE SUMMARY: Ms. Altagracia Chin was admitted on 11/04/2018 secondary to concerns of placenta abruptio. She was given steroid treatment with magnesium sulfate and monitored closely. She underwent a repeat low transverse delivery with bilateral tubal ligation for concerns o f placental abruption on 11/09/2018. She had an uneventful postop day 1, 2 and 3. Her incision is c lean, dry and intact. She is ambulating, tolerating diet, positive flatulence, positive bowel moveme nt. She will follow up in the clinic in 2 weeks for /postop care. Dictated By: MILLY MARES/KEVIN Conf#: [id number] DID#: [id number]
--- NOTE | 2018-11-13 19:03 | DELSUM ---
Delivery Summary A-C Datetime Report Generated by CPN: 11/13/2018 19:03 DELIVERY PERSONNEL Box Attacher: Schilling, Izabela MATERNAL INFORMATION Delivery Anesthesia: Spinal Medications in Delivery: SEE ANESTHESIA RECORD Delivery QBL (ml): 600 Placenta Cultured: Yes Maternal Complications: Other Other Maternal Complications: HYPERTENSION, A1GDM - INSULIN DEPENDENT LABOR SUMMARY EDC: 12/21/2018 00:00 No. Babies in Womb: 1 Attempted: No Labor Anesthesia: None LABOR INFORMATION Reason for Induction: Not Applicable Onset of Labor: 11/04/2018 16:00 Group B Beta Strep: Not Done Antibiotics # of Doses: 1 Antibiotics Time of Last Dose: 11/09/2018 12:40 Steroids Given: Partial Course; <24Hrs before Delivery Reason Steroids Not Administered: Not Applicable MEMBRANES Membranes Rupture Method: Artificial Rupture of Membranes: 11/09/2018 13:11 Length of Rupture (hr): 0.02 Amniotic Fluid Color: Clear Amniotic Fluid Amount: Small Amniotic Fluid Odor: None STAGES OF LABOR Stage 3 hr: 0 Stage 3 min: 2 Total Time in Labor hr: 117 Total Time in Labor min: 14 CSECTION DELIVERY Primary Indication: Repeat Elective Other Primary Indication: PREVIOUS C/S x1 CSection Urgency: Non Elective CSection Incidence: Repeat Labor: Labor Elective: Nonelective CSection Incision: Lower Uterine Transverse Sterilization Procedure: Mariana BABY A INFORMATION Infant Delivery Date/Time: 11/09/2018 13:12 Method of Delivery: Born in Route : No : N/A Forceps: N/A Vacuum Extraction: N/A Shoulder Dystocia : No SHOULDER DYSTOCIA BABY A Delivery Date/Time: 11/09/2018 13:12 PRESENTATION/POSITION BABY A Presentation: Cephalic Cephalic Presentation: Vertex Vertex Position: Left Occipital Anterior Breech Presentation: N/A PLACENTA INFORMATION BABY A Placenta Delivery Time : 11/09/2018 13:14 Placenta Method of Delivery: Manual Removal Placenta Status: Delivered SCORES BABY A Heart Rate 1 min: >100 bpm Resp Effort 1 min: Good Cry Reflex Irritability 1 min: Cough/Sneeze/Pulls Away Muscle Tone 1 min: Active Motion Color 1 min: Blue/Pale Resuscitation Effort 1 min: Tactile Stimulation; PPV/NCPAP SCORE 1 MIN: 8 Heart Rate 5 min: >100 bpm Resp Effort 5 min: Good Cry Reflex Irritability 5 min: Cough/Sneeze/Pulls Away Muscle Tone 5 min: Active Motion Color 5 min: Body [place], Extremit Blue Resuscitation Effort 5 min: Tactile Stimulation; PPV/NCPAP SCORE 5 MIN: 9 INFANT INFORMATION BABY A Gestational Age at Delivery: 34.0 Gestational Status: Late - 34- 36.6 Weeks Outcome : Liveborn, with signs of life Infant Condition : Stable Infant Sex: Female IDENTIFICATION/MEDS BABY A ID Band Number: [id number] ID Band Location: Right Leg; Left Arm Sensor Applied: No Vitamin K Given : Not Given Erythromycin Given: Not Given WEIGHT/LENGTH BABY A Infant Birthweight (gm): 2265 Weight (lb): 5 Weight (oz): 0 Infant Length (in): 17.50 Length (cm): 44.45 CORD INFORMATION BABY A No. Cord Vessels: 3 Nuchal Cord : N/A Cord Blood Taken: Yes Suction: Mouth; Nose ASSESSMENT BABY A Infant Complications: None Physical Findings at Delivery: Within Normal Limits Infant Respirations: Tachypnea Electrician Sound/ALS Called : Yes Infant Care By: nicu Transferred To: NICU
== END 2018-11-12 18:42 | disposition home or self-care (01) | DRG 783 ==
LOC: L-D 08:34 → OBT 08:34 → L-D 10:57 → OBT 10:57 → PP1 11:22 → L-D 12:14 → PP1 11-09 18:57
PROVIDERS: ADMIT Obstetrics & Gynecology; ATTEND Obstetrics & Gynecology
PROC: 0UT70ZZ Resection of Bilateral Fallopian Tubes, Open Approach (ICD-10-PCS; 2018-11-09)
PROC: 10D00Z1 Extraction of Products of Conception, Low, Open Approach (ICD-10-PCS; principal; 2018-11-09 13:00)
DX: O65.5 Obstructed labor due to abnormality of maternal pelvic organs (principal); O60.13X0 Preterm labor second trimester with preterm delivery third trimester, not applicable or unspecified; O24.429 Gestational diabetes mellitus in childbirth, unspecified control; O34.211 Maternal care for low transverse scar from previous cesarean delivery; Z3A.34 34 weeks gestation of pregnancy; Z37.0 Single live birth
CPT/HCPCS: 36415; 76815; 76817; 76818; 80053; 81001; 82436; 82575; 82962; 83735; 84133; 84156; 84300; 84560; 85025; 85384; 85460; 85610; 85730; 86850; 86900; 86901; 87086; 87340; 88302; 88307; 90715; G0463; J0690; J0702; J1170; J1815; J1885; J2175; J2250; J2274; J2370; J2405; J2590; J2765; J3010; J3475; J7120